=== PATIENT | female | born 1965 | race Caucasian/White ===

== ENCOUNTER 2018-09-09 06:55 | Day surgery (SDC) | payer BC ==
[~2018-09-09] VITALS: Ht 157.5 cm; Wt 106.6 kg
[~2018-09-09 06:55] MED LIST: ACID CONTROL150 MG PO; AUGMENTIN 875-1 EACH PO; FLAGYL500 MG PO; LEVOTHYROXINE137 MCG PO; LEVOTHYROXINE175 MCG PO; LISINOPRIL10 MG PO; LISINOPRIL20 MG PO; NORCO 10-325 T1 EACH PO; RANITIDINE HCL150 MG PO; ZESTRIL20 MG PO
--- NOTE | 2018-09-09 11:07 | NUR ---
PT ALERT, ORIENTED AND SUPPORTED BY HER . SHE SEEMS PREPARED, HAS FEW QUESTIONS. DR GOOD CAME IN, EXTENDED A BLESSING. WILL FOLLOW NEEDED
--- NOTE | 2018-09-09 11:16 | NUR ---
09/09/18 Annmarie6 Leatha Day 1106-PATIENT ARRIVED TO PACU ON 6L MASK. PATIENT NONAROUSABLE. ST. 4 LAP SITES TO ABDOMEN CDI. ORAL AIRWAY IN PLACE SHALLOW BREATHES. 1114-PATIENT AROUSING TO VERBAL STIMULI OPENING EYES RAISING LEFT HAND ORAL AIRWAY REMOVED. PATIENT VERY DROWSY DOZES BACK TO SLEEP. RR EVEN.
--- NOTE | 2018-09-09 12:14 | NUR ---
PT ARRIVES TO DS RM 5 FROM PACU AWAKE, SITTING IN HIGH FOWLERS POSITION. PT ON 2L OXYGEN VIA NC, SATS ABOVE 94%. PT DENIES PAIN OR NAUSEA. PT HAS ICE ON ABD AND USES PILLOW APPROPRIATELY TO BRACE ABD WITH CDB. SCD'S IN PLACE, CALL LIGHT WITHIN REACH. ICED WATER PROVIDED, PT TOLERATES SMALL SIPS. PT SPOUSE AT BEDSIDE.
[2018-09-09] MEDS ORDERED: NORCO 7.5-3251 EACH PO (12:41)
--- NOTE | 2018-09-09 13:05 | NUR ---
PT CONT TO REST IN BED IN HIGH FOWLERS POSITION. PT TITRATED TO RA SATS ABOVE 94%. RESP EVEN AND UNLABORED. PT DENIES NAUSEA AND STATES PAIN /. PT REQUESTS [facility]T, DIETARY CALLED. SPOUSE REMAINS AT BEDSIDE.
--- NOTE | 2018-09-09 14:25 | NUR ---
PT TOLERATES PO WELL. PT DENIES ANY N/V. PT HAS URGE TO VOID. PT SITS AT EDGE OF BED AND DENIES ANY DIZZINESS, THEN STANDS WITH NO PROBLEM. PT AMBULATES STEADY WITH RN ASSIST TO BATHROOM AND IS ABLE TO VOID 100 MLS YELLOW URINE. PT BACK IN BED AND PAINFUL, RATING PAIN 5/10. PT MEDICATED, SEE EMAR.
--- NOTE | 2018-09-09 15:07 | NUR ---
PT IS GIVEN VERBAL DC INSTRUCTIONS WITH HER PRESENT. THEY BOTH VERBALIZED UNDERSTANDING AND DENY HAVING ANY QUESTIONS. PT IS TAKEN TO THE VEHICLE VIA WC, SHE IS ABLE TO TRANSFER HERSELF.
--- NOTE | 2018-09-10 05:34 | OR ---
[facility] [address], [place] [address] Signed DATE OF OPERATION: 09/09/2018 SURGEON: Bipin Good MD PREOPERATIVE DIAGNOSIS: Chronic cholecystitis/cholelithiasis. POSTOPERATIVE DIAGNOSIS: Chronic cholecystitis/cholelithiasis. PROCEDURE: Laparoscopic cholecystectomy with intraoperative cholangiogram (prolonged and difficult at 2 hours and 10 minutes). ESTIMATED BLOOD LOSS: Minimal. FINDINGS: Wally had her gallbladder full of multiple 3 to 4 mm gallstones. She had significant sludge. She had gallbladder wall thickening. Of course, she had chronic inflammatory changes from her prior laparoscopic cholecystotomy. This took additional time to carefully and slowly dissect through all this and make her way down to the triangle of Calot. We had an additional nurse scrubbed in to hold the fan retractor and the gallbladder up and out of the way as we worked. We did perform an intraoperative cholangiogram and there may or may not be a filling defect in her distal common bile duct. Nevertheless, the contrast flowed readily into the duodenum. In the end, it took 2 hours and 10 minutes, which is well over an hour longer than usual. Based on these factors, her procedure was definitely prolonged and difficult. INDICATIONS: Wally is a 53-year-old female at 5 feet 2 inches and 236 pounds with a body mass index of 42. She came to us at the very end of June with cholecystitis/cholelithiasis. She had been taken to the operating room and the surrounding mesocolon was unbelievably indurated and we could not get anywhere near the neck of the gallbladder even with the help of a fan retractor. Consequently, we placed a cholecystotomy tube and kept her on antibiotics. In the meantime, she has continued to improve. We did perform a HIDA scan preoperatively and the contrast flowed readily through the common bile duct into the duodenum, but it never filled the cystic duct nor the gallbladder itself. Her drain stitch finally came through the skin a week or so ago and eventually that drain worked its way out of the gallbladder. However, with the tract that it formed along the drain, Electronically Signed By: BIPIN GOOD MD 09/10/18 0534 PATIENT NAME: WALLY JOINER OPERATIVE REPORT DATE OF : 61 REPORT #: [id number] PHYSICIAN: BIPIN GOOD MD PCP: ALANNA ALEX REPORT IS CONFIDENTIAL AND NOT TO BE RELEASED WITHOUT AUTHORIZATION [facility] [address] [place] [id number] Signed it was perfectly fine. She presents today then to have her definitive cholecystectomy. I reviewed this multiple times with Wally and her in detail. I gave them a [employer] brochure on the gallbladder. We looked at that carefully to understand the anatomy as well as the location and function of the gallbladder. We have also discussed the expected intraop and postop course. They are well aware that this will be more difficult than the usual gallbladder surgery. In addition, there are risks including, but not limited to bleeding, infection, scarring, change in contour of the skin, damage to bowel, damage to main bile duct, incisional hernias, and possible need for additional procedures, in particular, ERCP with extraction of common bile duct stones. They had expressed understanding and wished to proceed. PROCEDURE NOTE: Wally was taken into our operating room and placed in the supine position under general endotracheal tube anesthesia. She was given preoperative antibiotics along with subcutaneous heparin. SCDs had been utilized. A Hernandez catheter was inserted with return of clear yellow urine. In the end, 450 mL of urine were acquired throughout the procedure. After this, she was prepped and draped in usual sterile fashion. We went ahead and used an infraumbilical vertical incision and placed our trocar through a virgin area without difficulty under direct visualization. Fortunately, she did not have too many adhesions, mainly where the drain had come up to the abdominal wall in the right subcostal margin. It took a few minutes then to carefully dissect these adhesions free from the top of the gallbladder and over and away from the anterior abdominal wall. We had an additional nurse scrubbed in for this portion and then stay as we had to introduce the fan retractor to push the colon and the mesocolon down and out away of the neck of the gallbladder. On this occasion, there were chronic inflammatory changes of course, but nothing like we had 2 months ago. It was much improved. We then very carefully and slowly dissect out the triangle of Calot until we had the cystic duct isolated. The intraoperative cholangiocatheter was inserted into the cystic duct and the intraoperative cholangiogram was performed. The contrast flowed readily throughout the bile duct and into the duodenum itself. There is a concern may be there was a filling defect or two in the distal common bile duct, but it could be outside of the common bile duct. We tried to move the bile duct around the best we could without much success. We noted that there were no stones in the cystic duct itself. They were all right up to the neck of the gallbladder. We secured the cystic duct stump with a PDS Endoloop and 2 clips have been placed across the cystic duct stump to angelica its location. We then very slowly and carefully dissected out the gallbladder. We found the cystic artery running up to the gallbladder and it had been clipped twice and divided. It took additional time to very slowly and carefully dissect out the gallbladder with the help of the cautery even until that was completely free and again we maintained our second nurse to hold the fan retractor in place and help hold the gallbladder as well. We then placed the gallbladder into an EndoCatch bag. The right upper quadrant was irrigated and suctioned out until clear. All hemostasis was excellent. We then used our Electronically Signed By: BIPIN GOOD MD 09/10/18 0534 PATIENT NAME: WALLY JOINER OPERATIVE REPORT DATE OF : 61 REPORT #: [id number] PHYSICIAN: BIPIN GOOD MD PCP: ALANNA ALEX REPORT IS CONFIDENTIAL AND NOT TO BE RELEASED WITHOUT AUTHORIZATION [facility] [address] [place] [id number] Signed laparoscopic suturing device to pass #0 Vicryl suture on either side of the fascia of the subxiphoid trocar site as well as the mid epigastric trocar site and we closed these sutures down to close the fascia primarily. After this, all the gas was allowed to escape and the trocars were removed along with the gallbladder. We then closed the fascial defect of the infraumbilical trocar site with interrupted [id number] and simple #0 Vicryl sutures. Local anesthetic was then copiously injected into all trocar sites. Each trocar site was irrigated and suctioned out until clear. The skin and dermis of each trocar site were closed with interrupted 3-0 subcuticular Monocryl sutures. Dry gauze and tape were then applied to all incisions. Wally's Hernandez catheter was removed while she was asleep without difficulty. She was then awakened from anesthesia, extubated in the OR, and taken to recovery room in stable condition. Bipin Good MD ALB/MODL /[id number] cc: AMPARO Oscar MD Copies: BIPIN GOOD MD ~ Electronically Signed By: BIPIN GOOD MD 09/10/18 0534 PATIENT NAME: WALLY JOINER OPERATIVE REPORT DATE OF : 61 REPORT #: [id number] PHYSICIAN: BIPIN GOOD MD PCP: ALANNA ALEX REPORT IS CONFIDENTIAL AND NOT TO BE RELEASED WITHOUT AUTHORIZATION
== END 2018-09-09 14:55 | disposition home or self-care (01) ==
LOC: DS 06:55
PROVIDERS: Colon & Rectal Surgery
PROC: BF13YZZ Fluoroscopy of Gallbladder and Bile Ducts using Other Contrast (ICD-10-PCS; 2018-09-09)
PROC: 0FT44ZZ Resection of Gallbladder, Percutaneous Endoscopic Approach (ICD-10-PCS; principal; 2018-09-09 08:15)
DX: K80.12 Calculus of gallbladder with acute and chronic cholecystitis without obstruction (principal); I10 Essential (primary) hypertension; E66.9 Obesity, unspecified; E03.9 Hypothyroidism, unspecified; Z68.42 Body mass index [BMI] 45.0-49.9, adult; Z79.899 Other long term (current) drug therapy
CPT/HCPCS: 00790; 74300; J0131; J0690; J1644; J1885; J2250; J2405; J2704; J2765; J3010; J7120; Q9967

== ENCOUNTER 2019-07-29 09:10 | Day surgery (SDC) | payer BC ==
[~2019-07-29] VITALS: Ht 157.5 cm; Wt 110.7 kg
[~2019-07-29 09:10] MED LIST changes: +NORCO 7.5-3251 EACH PO
--- NOTE | 2019-07-29 10:58 | NUR ---
07/29/19 1058 M[address] 1052 PATIENT ARRIVES TO PACU SLEEPING, AWAKENS WITH VERBAL STIMULI, THEN BACK TO SLEEP. RESP EVEN AND UNLABORED, ROOM AIR SATS >93%.
--- NOTE | 2019-07-30 08:17 | OR ---
[facility] [address] [place], [place] [address] Signed DATE OF OPERATION: 07/29/2019 SURGEON: Bipin Good MD PREOPERATIVE DIAGNOSIS: Screening. POSTOPERATIVE DIAGNOSES: 1. [id number]-[id number] sigmoid diverticulosis. 2. Long redundant colon. PROCEDURE: Colonoscopy without biopsy. ESTIMATED BLOOD LOSS: None. INDICATIONS: Wally is a 54-year-old female, who was asked to see me for initial screening colonoscopy. She has no lower GI complaints. There is no family history of colon cancer or polyps. In the office, I gave Wally a pamphlet on colonoscopy. We looked at that together along with the risks including, but not limited to gas bloating, crampy abdominal pain, bleeding, perforation requiring surgery, and missed diagnosis. We also discussed the need for IV conscious sedation. She had expressed understanding and wished to proceed. PROCEDURE NOTE: Wally was taken into our endoscopy suite and placed in the left lateral decubitus position. She was given a total of 9 mg of Versed and 175 mcg of fentanyl. A digital rectal exam was performed and this was unremarkable. The adult colonoscope had been introduced and advanced under direct visualization of the camera. She has a somewhat long redundant colon. Her prep was average. She would do well with the use of double bowel prep in the future. We used extra sedation and abdominal compression in order to advance the scope into the cecum itself. We used irrigation throughout to help clear most of the areas. We could see the appendiceal orifice and the ileocecal valve. We had taken pictures for photodocumentation. The scope was then slowly withdrawn. She does have diverticula in the sigmoid colon. They were moderate in size, few in number, and scattered about. The rectum was unremarkable. Upon retroflexion of scope, there was no additional pathology noted above the anal canal. After this, the gas was suctioned out and colonoscope removed. Wally tolerated the procedure quite well. Electronically Signed By: BIPIN GOOD MD 07/30/19 0817 PATIENT NAME: WALLY JOINER OPERATIVE REPORT DATE OF : 61 REPORT #: [id number] PHYSICIAN: BIPIN GOOD MD PCP: ALANNA MORRISON PA-C REPORT IS CONFIDENTIAL AND NOT TO BE RELEASED WITHOUT AUTHORIZATION [address] [address] Signed RECOMMENDATIONS: Wally can return in 10 years for repeat colonoscopy. She should consider a double bowel prep at that time. MD GRACIELA Grady/HO /[id number] cc: MD Alanna Grady PA Copies: BIPIN GOOD MD ~ Electronically Signed By: BIPIN GOOD MD 07/30/19 0817 PATIENT NAME: WALLY JOINER OPERATIVE REPORT DATE OF : 61 REPORT #: [id number] PHYSICIAN: BIPIN GOOD MD PCP: ALANNA MORRISON PA-C REPORT IS CONFIDENTIAL AND NOT TO BE RELEASED WITHOUT AUTHORIZATION
== END 2019-07-29 11:20 | disposition home or self-care (01) ==
LOC: DS 09:10 → OPS 09:10 → DS 10:30 → OPS 11:20
PROVIDERS: Colon & Rectal Surgery
PROC: 0DJD8ZZ Inspection of Lower Intestinal Tract, Via Natural or Artificial Opening Endoscopic (ICD-10-PCS; principal; 2019-07-29 10:30)
DX: Z12.11 Encounter for screening for malignant neoplasm of colon (principal); Q43.8 Other specified congenital malformations of intestine; I10 Essential (primary) hypertension; K21.9 Gastro-esophageal reflux disease without esophagitis; E03.9 Hypothyroidism, unspecified; E66.9 Obesity, unspecified; G43.909 Migraine, unspecified, not intractable, without status migrainosus; Z79.899 Other long term (current) drug therapy; Z86.73 Personal history of transient ischemic attack (TIA), and cerebral infarction without residual deficits; Z98.890 Other specified postprocedural states; Z68.41 Body mass index [BMI] 40.0-44.9, adult
CPT/HCPCS: 99153; G0500; J2250; J3010; J7121